=== PATIENT | female | born 1960 | race Caucasian/White ===

== ENCOUNTER → 2024-08-31 | Day surgery (SDC) | payer MEDICARE ==
[~2024-08-31] MED LIST: ACETAMINOPHEN 1000 MG/100 ML 100 ML IV ONE; ADVIL200 M1; ASPIRIN81 MG PO; BREYNA 160-4.10.3 GM INH; BUPIVACAINE/EPI 0.5% 30ML SDV-MPF INJ ONE; DEXAMETHASONE SOD PHOS INJ 4 MG/ML SDV ONE; DOXYCYCLINE HY100 MG PO; FENTANYL CITRATE/PF 100MCG/2 ML INJ ONE; LIDOCAINE HCL 2% LOCAL INJ 5 ML SDV VIAL INJ ONE; LIPITOR10 MG PO; LOSARTAN POTASS50 MG PO; MEPERIDINE HCL INJ 25 MG/ML VIAL ONE; METHENAMINE HIPP1 GM PO; METOPROLOL TAR100 MG PO; MIDAZOLAM HCL 2 MG/2 ML VIAL ONE; MINOXIDIL2.5 MG PO; ONDANSETRON HCL INJ 2MG/ML 2ML 2 MG/ML VIAL ONE; PROPOFOL IV EMULSION 10 MG/ML 20 ML VIAL ONE; SPIRONOLACTONE25 MG PO; TRIAMTERENE-HCTZ1 EA PO; TYLENOL325 MG PO; VENTOLIN HFA18 GM INH
[2024-08-31 11:50] LABS: BASOPHILS # (AUTO) 0.1 (0.0-0.1); BASOPHILS % 0.6 % (0.0-1.0); EOSINOPHILS # (AUTO) 0.5 (0.0-0.4); EOSINOPHILS % 6.8 % (0.0-6.0); HEMATOCRIT 36.1 % (34.2-44.1); HEMOGLOBIN 11.7 g/dL (12.0-16.0); LYMPHOCYTES # (AUTO) 1.3 (1.0-3.2); LYMPHOCYTES % 17.3 % (18.0-39.1); MEAN CORPUSCULAR HEMOGLOBIN 29.8 pg (28-32); MEAN CORPUSCULAR HGB CONC 32.4 g/dL (31-35); MEAN CORPUSCULAR VOLUME 91.9 fL (81-99); MONOCYTES # (AUTO) 0.6 (0.2-0.8); MONOCYTES % 7.5 % (4.4-11.3); NEUTROPHILS # (AUTO) 5.2 (2.1-6.9); NEUTROPHILS % 67.4 % (38.7-80.0); PLATELET COUNT 313 x10e3/uL (140-360); RED BLOOD COUNT 3.93 x10e6/uL (3.6-5.1); RED CELL DISTRIBUTION WIDTH 14.3 % (11.7-14.4); WHITE BLOOD COUNT 7.74 x10e3/uL (4.8-10.8)
[2024-08-31] MEDS: LACTATED RINGER'S 1,000 ML ONE (12:13)
[2024-08-31 12:16] LABS: ANION GAP 15.6 mmol/L (8-16); CALCIUM 9.6 mg/dL (8.4-10.2); CREATININE, SERUM 1.03 mg/dL (0.57-1.11); POTASSIUM 4.6 mmol/L (3.5-5.1)
[2024-08-31] MEDS: MEPERIDINE HCL INJ 25 MG/ML VIAL IV ONE (12:36)
[2024-08-31 14:15] VITALS: TEMP 97.6
[2024-08-31 15:15] VITALS: BP 115/70; PULSE 60; RESP 16; O2SAT 98
== END | disposition home or self-care (01) ==
LOC: OR 10:57
PROVIDERS: ATTEND Specialist
DX: S82.841A Displaced bimalleolar fracture of right lower leg, initial encounter for closed fracture (principal); S93.402A Sprain of unspecified ligament of left ankle, initial encounter; I10 Essential (primary) hypertension; E78.5 Hyperlipidemia, unspecified; J45.909 Unspecified asthma, uncomplicated; E66.9 Obesity, unspecified; Z71.82 Exercise counseling; W19.XXXA Unspecified fall, initial encounter; Y93.01 Activity, walking, marching and hiking; Y92.89 Other specified places as the place of occurrence of the external cause; Y99.8 Other external cause status; Z79.82 Long term (current) use of aspirin; Z79.1 Long term (current) use of non-steroidal anti-inflammatories (NSAID); Z79.899 Other long term (current) drug therapy; Z68.30 Body mass index [BMI] 30.0-30.9, adult; Z71.3 Dietary counseling and surveillance
CPT/HCPCS: 27814; 36415; 71046; 76000; 80048; 85025; 93005; C1713 ×9; C1769; J0131; J0690; J1100; J2003; J2175; J2250; J2405; J2704; J3010; J7121